=== PATIENT | female | born 2000 | race Two or more races ===

== ENCOUNTER 2021-07-15 14:40 | Emergency (ER) | payer MEDICAID ==
[~2021-07-15] VITALS: Ht 160 cm; Wt 55.0 kg
--- NOTE | 2021-07-15 15:14 | PHYS DOC ---
Past History Past Surgical History: No Surgical History (LUIZ OLIVARES APRN) General Adult EDM: Chief Complaint: VAGINAL PROBLEM HPI: HPI: Patient is a 21-year-old female who presents to the emergency department with vaginal burning x3 days. Patient states that it feels like her vagina is irritated. She states that she had unprotected sex recently. She also states that she used baby oil on her vagina for the first time she is unsure if she is having irritation from it. Patient denies any itching, odor, vaginal discharge, vaginal bleeding, hematuria. She states that when she urinates it does burn. (LUIZ OLIVARES APRN) Review of Systems: Review of Systems: 14 body systems of the review of systems have been reviewed. See HPI for pertinent positive and negative responses, otherwise all other systems are negative, nonpertinent or noncontributory (LUIZ OLIVARES APRN) Physical Exam: PE: Constitutional: Well developed, well nourished, no acute distress, non-toxic appearance. [] HENT: Normocephalic, atraumatic Eyes: PERRL, EOMI, conjunctiva normal, no discharge. [] Neck: Normal range of motion, no stridor Cardiovascular:normal peripheral perfusion Lungs & Thorax: normal wob, no tachypnea Abdomen: softa nd flat Skin: Warm, dry, no erythema, no rash. [] Back: No tenderness, no CVA tenderness. [] Extremities: No tenderness, no cyanosis, no clubbing, ROM intact, no edema. [] Neurologic: Alert and oriented X 3, normal motor function, normal sensory function, no focal deficits noted. [] Psychologic: Affect normal, judgement normal, mood normal. [] Pelvic exam: external:extensive vesicular lesions noted to external genitalia cervix: yellow/green thin discharge adnexal tenderness:none cmt:none (LUIZ OLIVARES APRN) Current Patient Data: Labs: Laboratory Tests Test 07/15/21 14:48 Urine Collection Type Unknown Urine Color Yellow Urine Clarity Hazy Urine pH 5.5 Urine Specific [place] >=1.030 Urine Protein 100 mg/dl Urine Glucose (UA) Neg mg/dL Urine Ketones (Stick) Neg mg/dL Urine Blood Trace Urine Nitrite Neg Urine Bilirubin Neg Urine Urobilinogen Dipstick 0.2 mg/dL Urine Leukocyte Esterase Trace Urine RBC 3-5 /HPF Urine WBC 20-40 /HPF Urine Squamous Epithelial Cells Mod /LPF Urine Bacteria Few /HPF Urine Mucus Mod /LPF Urine Test Negative Current Medications Medications (Trade) Dose Ordered Sig/Oralia Route PRN Reason Start Time Stop Time Status Last Admin Dose Admin Ceftriaxone Sodium (Rocephin Im) 500 mg 1X ONCE IM 07/15/21 16:15 07/15/21 16:16 UNV Vital Signs: Vital Signs Date Time Temp Pulse Resp B/P (MAP) Pulse Ox O2 Delivery O2 Flow Rate FiO2 07/15/21 14:48 99.8 77 18 138/68 (91) 99 Room Air (LUIZ OLIVARES APRN) EKG: EKG: [] (LUIZ OLIVARES APRN) Radiology/Procedures: Radiology/Procedures: [] (LUIZ OLIVARES APRN) Heart Score: C/O Chest Pain: N/A Risk Factors: Risk Factors: DM, Current or recent (<one month) smoker, HTN, HLP, family history of CAD, obesity. Risk Scores: Score 0 - 3: 2.5% MACE over next 6 weeks - Discharge Home Score 4 - 6: 20.3% MACE over next 6 weeks - Admit for Clinical Observation Score 7 - 10: 72.7% MACE over next 6 weeks - Early Invasive Strategies (LUIZ OLIVARES APRN) Course & Med Decision Making: Course & Med Decision Making Pertinent Labs and Imaging studies reviewed. (See chart for details) [] Patient presents with vaginal burning. Work-up in the ER consisted of urinalysis, gonorrhea and Chlamydia testing, wet prep. Pelvic exam performed, investigator cash shortage present, pt tolerated procedure. Patient prophylactically treated for gonorrhea and chlamydia. She will be notifed of STI testing results in approximately 2 days. Urinalysis showed uti, treated with antibiotic. Wet prep negative. Patient advised to take all of antibiotic. Advised to follow-up with primary care provider. Advised to avoid sexual and. I discussed with patient all findings and diagnostic testing as well as the need to follow-up with PCP for further evaluation and treatment or return to the ER if any new or worsening symptoms. Strict return precautions were also discussed at length. Patient voiced understanding and agreement with the plan. Patient is hemodynamically stable at the time of disposition. (LUIZ OLIVARES APRN) Course & Med Decision Making I was the Attending physician on the above date of service of this patient. This patient was evaluated, examined, treated, and dispositioned from the emergency department by the mid-level practitioner. Although I was working at the time , no assistance was requested. Electronically signed, Dao Gomez DO (DAO GOMEZ DO) Dina Disclaimer: Dina Disclaimer: This electronic medical record was generated, in whole or in part, using a voice recognition dictation system. (LUIZ OLIVARES APRN) Departure Departure: Impression: Primary Impression: Encounter for screening for infections with predominantly sexual mode of transmission Disposition: HOME / SELF CARE / HOMELESS Condition: GOOD Referrals: PCP,NO (PCP) Patient Instructions: Sexually Transmitted Disease Additional Instructions: You are seen in the emergency department for vaginal burning and irritation. A urinalysis was performed that was positive for a mild urinary tract infection, this is treated with antibiotic. You were tested in the emergency department for herpes, gonorrhea, chlamydia, yeast and bacterial vaginosis. Your wet prep was negative for yeast and bacterial vaginosis. You were preventatively treated for STIs in the ER. You were given a shot of an antibiotic in the ER and antibiotic to go home with. Make sure that you start and finish the antibiotic completely. Avoid sexual intercourse for 2 weeks. Anytime you do have sexual intercourse, you should use condoms. If you would like any additional STI testing, I will follow up with the health department. Return to the emergency department if you have worsening of your vaginal burning, abdominal pain, intractable nausea or vomiting, high fevers, confusion, severe back pain or any new or worsening concerns. EMERGENCY DEPARTMENT GENERAL DISCHARGE INSTRUCTIONS Thank you for coming to [facility] (ED) today and trusting us with you care. We trust that you had a positivie experience in our Emergency Department. If you wish to speak to the department management, you may call the director at [phone]. YOUR FOLLOW UP INSTRUCTIONS ARE FOLLOWS: 1. Do you have a private Doctor? If you do not have a private doctor, please ask for a resource list of physicians or clinics that may be able to assist you with follow up care. 2. The Emergency Physician has interpreted your x-rays. The X-Ray specialist will also review them. If there is a change in the findings, you will be notified in 48 hours when at all possible. 3. A lab test or culture has been done, your results will be reviewed and you will be notified if you need a change in treatment. ADDITIONAL INSTRUCTIONS AND INFORMATION: 1. Your care today has been supervised by a physician who is specially trained in emergency care. Many problems require more than one evaluation for a complete diagnosis and treatment. We recommend that you schedule your follow up appointment as recommended to ensure complete treatment of you illness or injury. If you are unable to obtain follow up care and continue to have a problem, or if your condition worsens, we recommend that you return to the ED. 2. We are not able to safely determine your condition over the phone nor are we able to give sound medical advice over the phone. For these safety reasons, if you call for medical advice we will ask you to come to the ED for further evaluation. 3. If you have any questions regarding these discharge instructions please call the ED at [phone]. SAFETY INFORMATION: In the interest of safety, wellness, and injury prevention; we encourage you to wear your sealbelt, if you smoke; quite smoking, and we encourage family to use a protective helmet for bicycling and other sporting events that present an increased risk for head injury. IF YOUR SYMPTOMS WORSEN OR NEW SYMPTOMS DEVELOP, OR YOU HAVE CONCERNS ABOUT YOUR CONDITION; OR IF YOUR CONDITION WORSENS WHILE YOU ARE WAITING FOR YOUR FOLLOW UP APPOINTMENT; EITHER CONTACT YOUR PRIMARY CARE DOCTOR, THE PHYSICIAN WHOSE NAME AND NUMBER YOU WERE GIVEN, OR RETURN TO THE ED IMMEDIATELY. Scripts Doxycycline Hyclate (DOXYCYCLINE HYCLATE) 100 Mg Capsule 1 CAP PO BID for prophylactic treatment sti for 7 Days, #14 CAP 0 Refills Prov: LUIZ OLIVARES APRN 07/15/21 LUIZ OLIVARES APRN Jul 15, 2021 15:14 DAO GOMEZ DO Jul 16, 2021 13:16
[2021-07-15] MEDS ORDERED: cefTRIAXone IM 500 MG VIAL. IM ONE (16:15)
[2021-07-15 16:37] LABS: SQUAMOUS EPITHELIAL CELL,UR MOD /LPF
[2021-07-15 16:38] LABS: WBC,URINE 20-40 /HPF (0-4)
[2021-07-15 16:40] LABS: BACTERIA,URINE FEW /HPF (0-FEW); BILIRUBIN,URINE NEG (NEG); CLARITY,URINE HAZY; COLOR,URINE YELLOW; GLUCOSE,URINE NEG (NEG); NITRITE,URINE NEG (NEG); UROBILINOGEN,URINE 0.2 mg/dL (0.2 mg/dL)
[2021-07-15 16:41] LABS: U PREG PATIENT NEGATIVE (NEG)
[2021-07-15] MEDS ORDERED: DOXY100C3 PO (16:45)
[2021-07-15] MEDS ORDERED: DOXYCYCLINE HYCLATE 100 MG TABLET PO ONE (16:45)
[2021-07-15 17:35] VITALS: BP 124/63
[2021-07-17 16:07] LABS: CHLAMYDIA PROBE Negative (Negative)
[2021-07-20 08:21] LABS: HERPES SIMPLEX TYPE 1 Positive (Negative); HERPES SIMPLEX TYPE 2 Negative (Negative)
== END 2021-07-15 17:37 | disposition home or self-care (01) ==
LOC: ER 14:40
DX: N93.8 Other specified abnormal uterine and vaginal bleeding (principal); Z32.02 Encounter for pregnancy test, result negative
CPT/HCPCS: 81001; 81025; 87086; 87491; 87529; 87591; 96372; 99284; J0696; Q0111; 36415; 99283-25